=== PATIENT | male | born 1950 | race Caucasian/White ===

== ENCOUNTER → 2017-01-28 06:38 | Day surgery (SDC) | payer BC ==
--- NOTE | 2017-01-23 11:07 | HP ---
HISTORY AND PHYSICAL: DATE OF PLANNED ADMISSION AND SURGERY: 01/28/17 HISTORY OF PRESENT ILLNESS: Mr. 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 Mr. Grande's history goes back to about 2 months ago when he developed an episode of total gross painless hematuria. There were no associated renal or voiding symptoms. He was evaluated by Dr. Lai, urologist, in [place], [place]. Renal ultrasound was normal. Bladder ultrasound showed 3 cm solid mass in the left bladder wall. The patient underwent transurethral resection of the bladder tumor on 12/28/16 at [place], [place]. The pathology showed the tumor to be a high grade transitional cell carcinoma with invasion into the lamina propria, but no invasion into the bladder wall muscle. There were also areas of necrosis in the tumor. The patient did very well postoperatively. He was reevaluated by his urologist , who recommended a CT of the abdomen and pelvis after the edema of the surgery is resolved followed by a course of intravesical BCG. The patient presented to my office for another opinion. Considering the high grade nature of the tumor, the recommendation is to perform a resection of the bed of the resected tumor as a restaging procedure to confirm there is no residual tumor and no bladder wall muscle invasion. In preparation for this procedure, the patient had a CT urogram. This study showed the expected thickening of the bladder wall. There was, however, no evidence of any renal masses or abnormal filling defects in the collecting systems or in the ureters. Past history is relevant for placement of an inflatable penile prosthesis that was done about 10 years ago and still functioning well. The patient denies any obstructive voiding symptoms. PAST MEDICAL HISTORY: On system review, the patient is hypertensive and maintained on losartan and metoprolol. He is a diabetic, on NovoLog and Lantus insulin. He has hyperlipidemia, on Vytorin. ALLERGIES: He denies any allergies to any medications. FAMILY HISTORY: Negative for prostate carcinoma. SOCIAL HISTORY: He is a nonsmoker. He works as an extended insurance clerk. PHYSICAL EXAMINATION GENERAL: Pleasant and healthy looking white male. VITAL SIGNS: Blood pressure 110/60, pulse of 80. HEART: Regular and rhythmic, no murmurs. LUNGS: Clear. ABDOMEN: Soft. No masses, no tenderness, and no CVA tenderness. : External genitalia is circumcised. There is an inflatable penile prosthesis and a pump in the scrotum. There are no penile skin lesions or erosions. Testes feel normal. He has no inguinal hernias noted. RECTAL: Exam shows a nonenlarged and nonsuspicious prostate. EXTREMITIES: Show no edema. IMPRESSION: 1. High grade transitional cell carcinoma of the left bladder wall with lamina propria invasion, but no muscle invasion on the initial resection done 1 month ago in [place], [place]. Normal upper tracts on the CT urogram. Status post placement of inflatable penile prosthesis. 2. Diabetes mellitus, hypertension, dyslipidemia well controlled on treatment. PLAN: Cystoscopy and transurethral resection of the bed of the bladder tumor. If there is no evidence of muscle invasive disease, the plan is to give the patient a course of intravesical BCG. If on the other hand, there is evidence of muscle invasion, the patient will require systemic treatment which might include chemotherapy and radical cystectomy. I discussed the above plans in detail with the patient and his . Some of the potential complications of the procedure including bladder perforation were discussed. All their questions were answered. CC: Dr. Que Alexis, [address] [place] [address]* [id number]/[facility] #: [id number] MTDD
[~2017-01-28 06:38] MED LIST: Atracurium* 10 MG/ML 10 ML VIAL ONE; Buffered Lidocaine 1% SYRIN* 3 ML/SYR SYRINGE INTRADERM ONE; Famotidine IV* 10 MG/ML 2 ML (20 mg) IV ONE; Famotidine IV* 10 MG/ML 2 ML (20 mg) ONE; Fluorescein 10% INJ* 100 MG/ML AMP ONE; Glycopyrrolate IV* 0.2 MG/ML 1 ML VIAL ONE; Insulin REGULAR(*) 1 UNITS UNIT ONE; KETAMINE HCL* 50 MG/ML 10 ML VIAL ONE; Lidocaine 2% PF* 5 ML VIAL ONE; Metoprolol Tartrate IV* 1 MG/ML 5 ML VIAL ONE; Metoprolol Tartrate TAB* 25 MG ONE; Midazolam* 1 MG/ML 5 ML VIAL (5 MG) ONE; Morphine INJ* 2 MG/ML 1 ML SYRINGE IV PRN; Neostigmine Methylsulfate* 2 MG/2 ML SYRINGE ONE; Ondansetron INJ* 2 MG/ML VIAL ONE; PROCHLORPERAZINE INJ 5 MG/ML 2 ML VIAL IV PRN; PROCHLORPERAZINE INJ 5 MG/ML 2 ML VIAL ONE; Phenylephrine INJ* 10 MG/ML 1 ML VIAL (10 MG) ONE; Prochlorperazine TAB* 10 MG PO ONE; Propofol* 10 MG/ML 20 ML BTL IV PUSH ONE; Scopolamine 1.5 mg* PATCH ONE; Scopolamine 1.5 mg* PATCH TRANSDERM SCH; Scopolomine PATCH Remove* 1 NOTE MISC PATCH OFF ONE; cefTRIAXone(*) 2 GM ADDV.VIAL IVPB ONE; fentaNYL* 50 MCG/ML 2 ML VIAL (100 MCG VIAL) IV PRN; fentaNYL* 50 MCG/ML 2 ML VIAL (100 MCG VIAL) ONE; oxyCODONE/Acetamin 5/325 MG* TAB PO PRN
[2017-01-28 12:12] VITALS: BP 125/73
--- NOTE | 2017-01-29 01:08 | OP ---
DATE OF OPERATION: 01/28/17 [facility] DATE OF : 54 SURGEON: Jasper Rosas MD ANESTHESIOLOGIST: Dr. Abiel Pollock. ANESTHESIA: General. PRE-OP DIAGNOSIS: History of high-grade bladder tumor. POST-OP DIAGNOSIS: History of high-grade bladder tumor, pending pathology. OPERATIVE PROCEDURE: 1. Cystoscopy. 2. Transurethral resection of bed of resected high-grade bladder tumor, left anterior bladder wall. INDICATIONS FOR PROCEDURE: Mr. Grande is a 66-year-old white male, who is a nonsmoker, who underwent trans-urethral resection of a 3 cm high-grade transitional cell carcinoma of the urinary bladder 1 month ago. The pathology showed the tumor to be high grade with invasion into the lamina propria, but no muscle invasion. CT urogram showed normal kidneys, collecting systems and ureters without any abnormal filling defects. There was no evidence of any metastatic disease. There was thickening of the bladder wall consistent with the recent resected tumor. This procedure was done at the [place], [place]. The patient now is admitted for resection of the bed of the tumor for restaging purposes to confirm there is no muscle invasion. PATHOLOGY: At cystoscopy, the patient has an inflatable penile prosthesis. The urethra looked normal. The prostatic urethra measured about 2.5 cm in length and there was only early enlargement and obstruction by the prostate. Examination of the bladder showed normal urethral orifices. There was an area of granulation tissue located in the left anterior bladder wall measuring about 3 cm in diameter. The area is consistent with the history of a recent resected tumor. There was no growth evidence of a residual tumor. The rest of the bladder wall looked normal and there were no areas to suggest carcinoma in situ or papillary tumors. No gross tumor was seen in the bed of the resected tumor. DESCRIPTION OF PROCEDURE: After successful general anesthesia, the patient was placed in the dorsal lithotomy position and was prepped and draped for a cystoscopy. Care was taken with the urethral catheterization to avoid any potential injury to the urethra that might interfere with his prosthesis. Cystoscopy was performed. The bladder was carefully inspected and the above findings were noted. The cystoscope was removed and the resected scope was then passed inside the bladder under direct vision. There was no evidence of any urethral injury. The bladder was partially decompressed and suprapubic pressure was applied to bring in the anterior bladder wall into the field for resection. The bed of the tumor was then resected down to muscle. Muscle fibers were seen in the bed of the resected tissue. There was no perforation noted. The resected area was then thoroughly fulgurated with the coagulation current. The bladder was irrigated and the resected tissue was evacuated and sent for pathology. After a final inspection, which showed no bleeding and no suspicious bladder lesions, the resectoscope was removed. A size 18-Slovak Santizo catheter was then passed inside the bladder and the balloon inflated with 10 cc of water. The patient tolerated the procedure well and left the operating room in good condition. [id number]/[facility] #: [id number] MTDBernard
== END | disposition home or self-care (01) ==
LOC: OR 06:38
PROVIDERS: ATTEND Urology
DX: C67.3 Malignant neoplasm of anterior wall of bladder (principal); E11.8 Type 2 diabetes mellitus with unspecified complications; Z79.4 Long term (current) use of insulin; I10 Essential (primary) hypertension; E78.5 Hyperlipidemia, unspecified
CPT/HCPCS: 88305; 88341; 88342; A9270-GY; J0696; J0780; J2250; J2405; J2704; J3010; Q0164

== ENCOUNTER 2017-06-24 09:56 | Day surgery (SDC) | payer BC ==
--- NOTE | 2017-06-15 13:53 | HP ---
CC: Dr. Que Alexis * HISTORY AND PHYSICAL: DATE OF PLANNED ADMISSION AND SURGERY: 06/24/17 HISTORY OF PRESENT ILLNESS: Mr. Grande is a 67-year-old white male who is admitted with a history of high-grade transitional cell carcinoma of the urinary bladder for cystoscopy and transurethral resection of the bed of the tumor for restaging purposes. Mr. Grande was diagnosed in December 2016 as having a high-grade transitional cell carcinoma of the urinary bladder. The tumor was invading into the lamina propria , but there was no invasion into the bladder wall muscle. CT urogram showed normal upper tracts and no evidence of any abnormal filling defects in the collecting systems or in the ureters. He underwent a trans-urethral resection of the bed of the tumor on 02/01/17 for restaging purposes. The pathology showed carcinoma in situ, but there was no recurrence of the papillary tumor and there was no evidence of invasion into the bladder wall muscle. He then completed a 6 weeks course of intravesical BCG treatment on 04/15/17. The treatments were well tolerated. He had a follow-up cystoscopy in the office. There was no gross evidence of recurrent disease; however, there was still some hyperemia at the site of the original tumor. The patient now is admitted for resection of the bed of the original tumor for restaging purposes and evaluation of the response of the tumor to the BCG treatments. His past history is relevant for erectile dysfunction. He had placement of an inflatable penile prosthesis done about 10 years ago. It has been functioning well. He denies any obstructive voiding symptoms. PAST MEDICAL HISTORY AND SYSTEM REVIEW: He is a diabetic, is maintained on NovoLog and on Lantus insulin. He has hyperlipidemia, on Vytorin. He denies any cardiac or pulmonary diseases or symptoms. ALLERGIES: The patient denies any allergies to medications. SOCIAL HISTORY: He is a nonsmoker. He works as an insurance claims assistant. PHYSICAL EXAMINATION GENERAL: Pleasant, healthy, and fit-looking white male. VITAL SIGNS: Blood pressure 120/70, pulse of 80. Exam of the heart and lungs is normal. He has no CVA tenderness. ABDOMEN: Normal. GENITALIA: Penile prosthesis in place. No penile skin lesions. IMPRESSION: Status post transurethral resection of a high-grade bladder tumor with lamina propria invasion and adjacent carcinoma in situ with no evidence of any muscle invasion, status post BCG treatment. PLAN/RECOMMENDATIONS: For cystoscopy and transurethral resection of the bed of the tumor for restaging purposes. I discussed the above plans with the patient and his , all their questions were answered. [id number]/[facility] #: [id number] MTDD
[~2017-06-24 09:56] MED LIST changes: -Atracurium* 10 MG/ML 10 ML VIAL ONE; +Buffered Lidocaine 0.9% SYRIN* 5 ML/SYR SYRINGE INTRADERM ONE; -Buffered Lidocaine 1% SYRIN* 3 ML/SYR SYRINGE INTRADERM ONE; -Famotidine IV* 10 MG/ML 2 ML (20 mg) ONE; -Fluorescein 10% INJ* 100 MG/ML AMP ONE; -Glycopyrrolate IV* 0.2 MG/ML 1 ML VIAL ONE; -Insulin REGULAR(*) 1 UNITS UNIT ONE; -KETAMINE HCL* 50 MG/ML 10 ML VIAL ONE; -Lidocaine 2% PF* 5 ML VIAL ONE; -Metoprolol Tartrate IV* 1 MG/ML 5 ML VIAL ONE; -Metoprolol Tartrate TAB* 25 MG ONE; -Midazolam* 1 MG/ML 5 ML VIAL (5 MG) ONE; -Morphine INJ* 2 MG/ML 1 ML SYRINGE IV PRN; -Neostigmine Methylsulfate* 2 MG/2 ML SYRINGE ONE; -Ondansetron INJ* 2 MG/ML VIAL ONE; -PROCHLORPERAZINE INJ 5 MG/ML 2 ML VIAL IV PRN; -PROCHLORPERAZINE INJ 5 MG/ML 2 ML VIAL ONE; -Phenylephrine INJ* 10 MG/ML 1 ML VIAL (10 MG) ONE; -Prochlorperazine TAB* 10 MG PO ONE; -Propofol* 10 MG/ML 20 ML BTL IV PUSH ONE; -Scopolamine 1.5 mg* PATCH ONE; -Scopolamine 1.5 mg* PATCH TRANSDERM SCH; -Scopolomine PATCH Remove* 1 NOTE MISC PATCH OFF ONE; -cefTRIAXone(*) 2 GM ADDV.VIAL IVPB ONE; -fentaNYL* 50 MCG/ML 2 ML VIAL (100 MCG VIAL) IV PRN; -fentaNYL* 50 MCG/ML 2 ML VIAL (100 MCG VIAL) ONE; -oxyCODONE/Acetamin 5/325 MG* TAB PO PRN
[2017-06-24] MEDS ORDERED: cefTRIAXone(*) 2 GM ADDV.VIAL IVPB ONE (10:24)
[2017-06-24] MEDS ORDERED: Famotidine IV* 10 MG/ML 2 ML (20 mg) ONE (10:24)
[2017-06-24] MEDS ORDERED: Buffered Lidocaine 0.9% SYRIN* 5 ML/SYR SYRINGE ONE (10:25)
[2017-06-24] MEDS ORDERED: Insulin LISPRO* 1 UNITS UNIT SUBCUT ONE (11:46)
[2017-06-24] MEDS ORDERED: Midazolam* 1 MG/ML 5 ML VIAL (5 MG) ONE (11:46)
[2017-06-24] MEDS ORDERED: fentaNYL* 50 MCG/ML 2 ML VIAL (100 MCG VIAL) ONE (11:46)
[2017-06-24] MEDS ORDERED: Insulin REGULAR(*) 1 UNITS UNIT SUBCUT ONE (11:48)
[2017-06-24] MEDS ORDERED: Ondansetron INJ* 2 MG/ML VIAL ONE (12:31)
[2017-06-24] MEDS ORDERED: DiMENhydriNATE IV* 50 MG/ML VIAL ONE (12:31)
[2017-06-24] MEDS ORDERED: Ketorolac INJ* 30 MG/ML 1 ML VIAL ONE (12:31)
[2017-06-24] MEDS ORDERED: Succinylcholine* 20 MG/ML 10 ML VIAL ONE (12:31)
[2017-06-24] MEDS ORDERED: Propofol* 10 MG/ML 20 ML BTL IV PUSH ONE (12:31)
[2017-06-24] MEDS ORDERED: Lidocaine 2% PF * 5 ML VIAL ONE (12:31)
[2017-06-24] MEDS ORDERED: Dexamethasone IV* 4 MG/ML 1 ML (4 MG) ONE (12:31)
[2017-06-24] MEDS ORDERED: Insulin REGULAR(*) 1 UNITS UNIT ONE (13:17)
[2017-06-24] MEDS ORDERED: Phenylephrine IV* 40 MCG/ML 10 ML SYRINGE ONE (13:24)
[2017-06-24] MEDS ORDERED: Acetaminophen TAB* 325 MG PO PRN (13:56)
[2017-06-24] MEDS ORDERED: HYDROmorphone* 1 MG/ML 1 ML SYR IV PRN (13:56)
[2017-06-24] MEDS ORDERED: DiMENhydriNATE IV* 50 MG/ML VIAL IV PUSH PRN (13:56)
[2017-06-24] MEDS ORDERED: oxyCODONE TAB* 5 MG TAB PO PRN (13:56)
[2017-06-24 14:47] VITALS: BP 138/78
--- NOTE | 2017-06-25 01:17 | OP ---
CC: Dr. Que Alexis* DATE OF OPERATION: 06/24/17 - [facility] DATE OF : 54 SURGEON: Jasper Rosas MD ANESTHESIOLOGIST: Lori Gerardo MD ANESTHESIA: General. PRE-OP DIAGNOSIS: History of high-grade noninvasive transitional cell carcinoma of the urinary bladder. POST-OP DIAGNOSIS: Pending pathology. OPERATIVE PROCEDURE: 1. Cystoscopy. 2. Multiple biopsies and fulguration of bladder lesion. INDICATIONS: Mr. Grande is a 67-year-old white male who was diagnosed in December 2016 with a high-grade transitional cell carcinoma of the urinary bladder with lamina propria invasion, but no muscle invasion. This was confirmed on restaging procedure with resection of the bed of the original tumor. CT urogram was normal. The patient completed a 6 weeks' course of intravesical BCG about 2 months ago. Followup cystoscopy showed hyperemia and reactive changes at the site of the original tumor, but there were no new tumors seen. Urine cytology was negative. The patient is admitted for resection of the bed of the original tumor for restaging purposes and to confirm that there is no recurrent or residual disease. PATHOLOGY: The patient has an inflatable penile prosthesis. The urethra looked normal. The prostatic urethra was short and open. Examination of the bladder showed mild bladder trabeculations. There were no papillary lesions seen. A flat, hyperemic lesion was noted in the left anterior bladder wall. There were some reactive changes that could be consistent with BCG reaction. The mucosa adjacent to the lesion looked normal. The rest of the bladder wall looked normal. The ureteral orifices looked normal. DESCRIPTION OF PROCEDURE: After success general anesthesia, the patient was placed in the lithotomy position and was prepped and draped for a cystoscopy. Cystoscopy was performed. The bladder was inspected and the above findings were noted. The site of the original tumor looked thinned out and fibrotic and there was a concern that it was thinned out from previous resections, and close to the dome of the bladder and attempt at transurethral resection might result in intraperitoneal perforation of the bladder wall. Decision was made to perform cold biopsies. Using the biopsy forceps, multiple biopsies were obtained from the bed of the tumor and they were sent for pathology. The sites of the resection were then thoroughly fulgurated with the coagulation current. At the completion of the procedure, there was no evidence of any suspicious lesions seen. There was no bladder perforation noted. There was very good hemostasis. The scope was removed and a size 18-Greek Santizo catheter was passed inside the bladder and the balloon inflated with 10 cc of water. The patient tolerated the procedure well and left the operating room in good condition. The plan is to remove the Santizo catheter in the recovery room. The patient will be seen next week in the office to discuss the results of the biopsies. [id number]/[facility] #: [id number] MTDBernard
== END 2017-06-24 15:29 | disposition home or self-care (01) ==
LOC: OR 09:56
PROVIDERS: ATTEND Urology
DX: N32.9 Bladder disorder, unspecified (principal); Z85.51 Personal history of malignant neoplasm of bladder; E11.9 Type 2 diabetes mellitus without complications; Z79.4 Long term (current) use of insulin; E78.5 Hyperlipidemia, unspecified
CPT/HCPCS: 88305; J0330; J0696; J1100; J1240; J1885; J2250; J2405; J2704; J3010